=== PATIENT | female | born 1980 | race Caucasian/White ===

== ENCOUNTER 2017-01-06 07:08 | Emergency (ER) | payer OTHER ==
[~2017-01-06] VITALS: Ht 160 cm; Wt 60.9 kg
[~2017-01-06 07:08] MED LIST: ADDERALL XR 2525 MG PO; CLARITIN,ALAVAR10 MG PO
[2017-01-06 08:47] LABS: MCH 30.5 PG (29.0-34.0); MCV 89.7 FL (83-99); MEAN PLAT.VOLUME 9.3 uM^3 (9.5-12.4); PLATELET COUNT 288 K/uL (156-360); RBC DIS.WIDTH-CV 12.2 % (11.8-14.6); RBC DIS.WIDTH-SD 40.2 % (39-53); RED BLOOD COUNT 4.46 M/uL (3.80-5.20); WHITE BLOOD COUNT 14.6 K/uL (4.1-10.2)
[2017-01-06 09:24] LABS: QUANTITATIVE HCG < 4.0 MIU/ML
[2017-01-06 09:43] LABS: ADD MIUA? YES; BILIRUBIN NEGATIVE; BLOOD SMALL; COLOR YELLOW ((YELLOW)); GLUCOSE (STRIP) NEGATIVE; KETONES NEGATIVE; LEUKOCYTES TRACE; NITRITE POSITIVE; PROTEIN (STRIP) NEGATIVE; SPECIFIC GRAVITY 1.008 (1.000-1.030); UROBILINOGEN 0.2 MG/DL (0.2-1.0)
[2017-01-06 09:45] LABS: ANION GAP 9 MEQ/L (2-14); CHLORIDE 101 MEQ/L (99-109); POTASSIUM 3.4 MEQ/L (3.7-5.4); SAMPLE HEMOLYSIS CHECK 0; SAMPLE ICTERIC CHECK 0; SAMPLE LIPEMIA CHECK 0; SODIUM 135 MEQ/L (136-147); TOTAL BILIRUBIN 1.1 MG/DL (0.0-1.0)
[2017-01-06 09:49] LABS: BACTERIA RARE /HPF; EPITHELIAL CELLS RARE /HPF; MUCUS TRACE /LPF; RED BLOOD CELLS 0-5 /HPF (0-5); UCUL ADDED? NO; WHITE BLOOD CELLS 0-5 /HPF (0-5)
[2017-01-06 09:50] LABS: GFR ESTIMATE (CALCULATED) > 59 mL/min/; GLUCOSE 91 mg/dL (70-99); UREA NITROGEN (BUN) 10 mg/dL (9-23)
[2017-01-06 09:51] LABS: ALKALINE PHOSPHATASE 49 IU/L (3-129); LIPASE 8 U/L (1.0-51.0)
[2017-01-06] MEDS ORDERED: FLAGYL500 MG PO (12:10)
[2017-01-06] MEDS ORDERED: TYLENOL WITH C1 EACH PO (12:10)
[2017-01-06] MEDS ORDERED: CIPRO500 MG PO (12:10)
[2017-01-06 12:40] VITALS: BP 108/84
== END 2017-01-06 12:41 | disposition home or self-care (01) ==
LOC: EME 07:08
DX: K57.32 Diverticulitis of large intestine without perforation or abscess without bleeding (principal); N30.90 Cystitis, unspecified without hematuria; Z98.1 Arthrodesis status; Z87.442 Personal history of urinary calculi
CPT/HCPCS: 74177; 80053; 81003; 83690; 84702; 85027; 99281; 99285; J1885; J2405; J7030

== ENCOUNTER 2017-02-04 05:36 | Day surgery (SDC) | payer OTHER ==
[~2017-02-04] VITALS: Ht 160 cm; Wt 61.2 kg
[~2017-02-04 05:36] MED LIST changes: +ADDERALL XR 3030 MG PO; +CIPRO500 MG PO; +FLAGYL500 MG PO; +TYLENOL WITH C1 EACH PO
[2017-02-04 06:28] VITALS: BP 109/70
[2017-02-04] MEDS ORDERED: PERCOCET 5/31 TABLET PO (07:31)
[2017-02-04] MEDS ORDERED: MOTRIN800 MG PO (07:31)
[2017-02-04 11:50] VITALS: BP 151/61
[2017-02-04 13:00] VITALS: BP 112/75
[2017-02-04 15:38] VITALS: BP 110/70
[2017-02-04 16:39] VITALS: BP 111/73
== END 2017-02-04 16:57 | disposition home or self-care (01) ==
LOC: SDC 05:36 → 2SOUTH 11:06 → EDSTATUS 11:06 → SDC 11:07
DX: N80.0 Endometriosis of uterus (principal); N94.6 Dysmenorrhea, unspecified
CPT/HCPCS: 88307; J0131; J0330; J0690; J1100; J1170; J1885; J2250; J2405; J3010; S0020

== ENCOUNTER 2017-06-27 08:02 | Emergency (ER) | payer OTHER ==
[~2017-06-27] VITALS: Ht 160 cm; Wt 64.7 kg
[~2017-06-27 08:02] MED LIST changes: +MOTRIN800 MG PO; +PERCOCET 5/31 TABLET PO
[2017-06-27 09:09] LABS: ADD MIUA? YES; BILIRUBIN NEGATIVE; BLOOD NEGATIVE; COLOR AMBER ((YELLOW)); GLUCOSE (STRIP) NEGATIVE; KETONES NEGATIVE; LEUKOCYTES NEGATIVE; NITRITE NEGATIVE; PROTEIN (STRIP) 30; SPECIFIC GRAVITY 1.026 (1.000-1.030)
[2017-06-27 09:13] LABS: HEMATOCRIT 38.4 % (36.0-46.0); MCH 30.2 PG (29.0-34.0); MCHC 35.2 G/DL (30.0-36.0); MCV 85.9 FL (83-99); MEAN PLAT.VOLUME 8.5 uM^3 (9.5-12.4); PLATELET COUNT 185 K/uL (156-360); RBC DIS.WIDTH-CV 12.8 % (11.8-14.6); RBC DIS.WIDTH-SD 40.1 % (39-53); RED BLOOD COUNT 4.47 M/uL (3.80-5.20); WHITE BLOOD COUNT 6.8 K/uL (4.1-10.2)
[2017-06-27 09:16] LABS: BACTERIA NONE SEEN /HPF; CALCIUM OXALATE CRYSTALS 1+ /HPF; EPITHELIAL CELLS 2+ /HPF; MUCUS 2+ /LPF; UCUL ADDED? NO; WHITE BLOOD CELLS 0-5 /HPF (0-5)
[2017-06-27 09:22] LABS: CHLORIDE 102 mEq/L (99-109); POTASSIUM 3.9 mEq/L (3.7-5.4); SODIUM 134 mEq/L (136-147)
[2017-06-27 09:24] LABS: GLUCOSE 92 mg/dL (70-99)
[2017-06-27 09:25] LABS: ANION GAP 7 MEQ/L (2-14)
[2017-06-27 09:26] LABS: TOTAL BILIRUBIN 0.9 mg/dL (0.0-1.0)
[2017-06-27 09:27] LABS: ALKALINE PHOSPHATASE 184 IU/L (3-129)
[2017-06-27 09:28] LABS: GFR ESTIMATE (CALCULATED) > 59 mL/min/
[2017-06-27 09:29] LABS: UREA NITROGEN (BUN) 13 mg/dL (9-23)
[2017-06-27 09:36] LABS: QUANTITATIVE HCG < 4.0 MIU/ML
[2017-06-27 10:17] LABS: INTER. NORMALIZED RATIO 1.2; PROTHROMBIN TIME 13.1 SEC (10.2-12.9)
[2017-06-27 10:20] LABS: PTT 31.6 SEC (25-37)
[2017-06-27 10:49] LABS: LIPASE 20 U/L (1.0-51.0)
[2017-06-27 11:36] LABS: INTERNAL CONTROL VALID? YES; MONOSPOT (MONONUCLEOSIS SEROL) NEGATIVE
[2017-06-27] MEDS ORDERED: ZOFRAN ODT4 MG PO (11:51)
[2017-06-27 12:38] VITALS: BP 120/74
[2017-06-27 13:26] LABS: C-REACTIVE PROTEIN 8.9 MG/L (0-10)
[2017-06-27 13:34] LABS: ERTH.SED.RATE 16 MM/HR (0-20)
[2017-06-28 11:28] LABS: HBSG INDEX 0.15
[2017-06-28 11:29] LABS: ANTI-HEPATITIS A VIRUS (IGM) Nonreactive; HAV INDEX 0.16
[2017-06-28 11:30] LABS: ANTI-HEPATITIS B CORE (IGM) Nonreactive; HBC IgM INDEX 0.13; HPCA INDEX 1.12
== END 2017-06-27 12:39 | disposition home or self-care (01) ==
LOC: EME 08:02
PROVIDERS: Nurse Practitioner Family
DX: K75.9 Inflammatory liver disease, unspecified (principal); R11.2 Nausea with vomiting, unspecified; Z87.19 Personal history of other diseases of the digestive system; Z87.442 Personal history of urinary calculi; Z87.11 Personal history of peptic ulcer disease; Z98.1 Arthrodesis status; Z90.710 Acquired absence of both cervix and uterus
CPT/HCPCS: 76705; 80053; 80074; 81003; 82140; 83516 90; 83690; 84702; 85027; 85610; 85651; 85730; 86038; 86140; 86308; 87522 90; 99281; 99284